=== PATIENT | female | born 1960 | race Caucasian/White ===

== ENCOUNTER → 2021-08-18 13:45 | Outpatient (CLI) | payer OTHER, SELFPAY ==
--- NOTE | 2021-08-18 13:52 | XR_ITS ---
PROCEDURE: XR FOOT WT BEARING RT 3V CLINICAL INDICATION: pain COMPARISON: No exams were available for comparison FINDINGS: Status post posterior talocalcaneal fusion, calcaneocuboid fusion with lateral bone plate, and talonavicular fusion with medial bone plate. There is pes planus. Osteoarthritic changes are present at the talonavicular joint with anterior subluxation of the navicular. Flexion deformity of all digits with osteoarthritic change at the navicular cuneiform joint and 1st tarsal metatarsal junction as well as the 1st MTP joint. No acute fracture or dislocation. Mild osteoarthritis tarsal metatarsal junction digits 1 through 5. IMPRESSION: Postsurgical changes with pes planus along with osteoarthritic changes as described above. Dictated by: Camilo Diana MD 08/18/2021 14:46 Camilo Diana MD in [facility] 08/18/2021 14:46
--- NOTE | 2021-08-18 13:52 | XR_ITS ---
PROCEDURE: XR FOOT WT BEARING LT 3V CLINICAL INDICATION: pain COMPARISON: No exams were available for comparison FINDINGS: Hallux valgus with osteoarthritis at the 1st MTP joint. Valgus angulation of the 2nd and 3rd proximal phalanges. 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 Bony hypertrophy along the dorsal aspect of the cuneiforms. Small calcaneal spur. The no acute fracture or dislocation. Bony hypertrophy at the distal aspect of the 1st metatarsal. Type 2 os navicularis. Other findings:None. IMPRESSION: Hallux valgus with osteoarthritic changes as described above. Dictated by: Camilo Diana MD 08/18/2021 14:49 Camilo Diana MD in [facility] 08/18/2021 14:49
== END ==
PROVIDERS: PCP Family Medicine; Visit Provider Podiatrist
DX: M79.672 Pain in left foot (principal); M79.671 Pain in right foot
CPT/HCPCS: 73630

== ENCOUNTER → 2021-09-03 15:01 | Outpatient (CLI) | payer OTHER, SELFPAY ==
--- NOTE | 2021-09-03 15:01 | CT_ITS ---
PROCEDURE INFORMATION: Exam: CT Right Lower Extremity Without Contrast, Foot Exam date and time: 09/03/2021 3:01 PM Age: 61 years old Clinical indication: Prior surgery; Patient HX: Right foot pain; Additional info: Right foot pain TECHNIQUE: Imaging protocol: CT of the Right lower extremity without contrast was performed. Exam focused on the foot. 3D rendering (Not supervised by radiologist): MIP and/or 3D reconstructed images were created by the technologist. Radiation optimization: All CT scans at this facility use at least one of these dose optimization techniques: automated exposure control; mA and/or kV adjustment per patient size (includes targeted exams where dose is matched to clinical indication); or iterative reconstruction. COMPARISON: CR XR FOOT WT BEARING RT 3V 08/18/2021 2:16 PM FINDINGS: Bones/joints: There is marked patchy osteopenia. No acute fracture. Small chronic/corticated ossific bodies are seen near the distal margins of the medial and lateral malleoli, lateral process talus, and lateral portion of the calcaneus. Chronic-appearing irregularity of several metatarsal bases may also be due to old trauma. Pes planus. Degenerative changes of the tibiotalar joint, with near complete joint space loss inferolaterally. 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 One of the talonavicular screws is fractured. Hallux valgus. Proximal and lateral subluxation of the hallux sesamoids. Possible hammertoe deformities. Soft tissues: There is a large amount of fluid within the flexor hallucis longus tendon sheath compatible with marked tenosynovitis. Lateral subluxation of the flexor hallucis longus tendon suggested. Volume loss and fatty atrophy of the visualized musculature. Diffuse subcutaneous adipose tissue edema throughout the foot and ankle, most confluent around the medial and lateral malleoli. No soft tissue fluid collection identified on this noncontrast study. IMPRESSION: 1. Pes planus. Triple arthrodesis with mature ankylosis. One of the talonavicular fixation screws is fractured. 2. Hallux valgus. Lateral subluxation of the hallux sesamoids and flexor hallucis longus tendon. Marked FHL tenosynovitis. 3. Nonspecific generalized subcutaneous edema.
== END ==
PROVIDERS: PCP Family Medicine; Visit Provider Podiatrist
DX: M79.671 Pain in right foot (principal)
CPT/HCPCS: 73700

== ENCOUNTER → 2021-09-30 14:39 | Outpatient (CLI) | payer OTHER, SELFPAY ==
[2021-09-30 15:08] LABS: Basophils # 0.1 K/mm3 (0-0.2); Basophils % 0.8 % (0.1-2.0); Eosinophils % 0.4 % (0.1-12.0); Hematocrit 40.9 % (37.0-47.0); Hemoglobin 13.1 g/dL (12.2-16.2); Lymphocytes % 13.1 % (10-50); Mean Corpuscular HGB Conc 32.1 g/dL (31.8-35.4); Mean Corpuscular Hemoglobin 30.3 pg (27.0-31.2); Mean Corpuscular Volume 94.3 fl (81-99); Mean Platelet Volume 9.2 fl (7.4-10.4); Monocytes # 0.1 K/mm3 (0.1-1.0); Monocytes % 1.2 % (1.7-9.3); Neutrophils # 6.2 K/mm3 (1.8-7.8); Neutrophils % 84.6 % (37.0-80.0); Platelet Count 316 K/mm3 (142-424); Red Blood Count 4.33 M/mm3 (4.20-5.40); Red Cell Distribution Width 14.9 % (11.5-17.5); White Blood Count 7.3 K/mm3 (4.8-10.8)
[2021-09-30 16:01] LABS: Alanine Aminotransferase 21 U/L (12-78); Albumin Level 4.2 g/dl (3.5-5.0); Albumin/Globulin Ratio 1.7 (1.1-1.8); Alkaline Phosphatase 110 U/L (38-126); Aspartate Amino Transferase 32 U/L (14-36); Bilirubin,Total 0.5 mg/dl (0.2-1.3); Blood Urea Nitrogen 17 mg/dl (7-17); Calcium 9.5 mg/dl (8.4-10.2); Carbon Dioxide 29 mmol/L (22.0-30.0); Chloride 100 mmol/L (98-107); Estimated Glomerular Filt Rate 63 ml/min (>60); GFR (African American) 77 ML/MIN (>60); Globulin 2.5 g/dL (1.3-3.2); Glucose 111 mg/dl (74-100); Sodium 137 mmol/L (136-145); Total Protein,Serum 6.7 g/dl (6.3-8.2)
[2021-09-30 16:05] LABS: Erythrocyte Sedimentation Rate 25 mm/hr (0-30)
[2021-09-30 16:07] LABS: C-Reactive Protein 11.2 mg/L (0-4)
[2021-09-30 16:14] LABS: Intact Parathyroid Hormone 115.9 pg/mL (7.5-53.5)
[2021-09-30 16:18] LABS: 25-OH Vitamin D, Total 55.9 ng/mL (30-100)
== END ==
PROVIDERS: PCP Family Medicine; Visit Provider Podiatrist
DX: M79.671 Pain in right foot (principal)
CPT/HCPCS: 36415; 80053; 82306; 83036; 83970; 85025; 85651; 86140